=== PATIENT | female | born 1945 | race Caucasian/White ===

== ENCOUNTER 2021-10-26 10:18 | Emergency (ER) | payer MEDICARE, MEDICAID ==
[~2021-10-26] VITALS: Ht 154.9 cm; Wt 77.0 kg
[~2021-10-26 10:18] MED LIST: CLON0.5T4 PO; LOSA50TA41 PO
[2021-10-26] MEDS ORDERED: ACETAMINOPHEN WITH CODEINE 300/30MG TABLET PO ONE (10:45)
[2021-10-26 12:48] VITALS: BP 143/89
== END 2021-10-26 12:51 | disposition home or self-care (01) ==
LOC: ER 10:18
DX: S06.890A Other specified intracranial injury without loss of consciousness, initial encounter (principal); M54.2 Cervicalgia; M79.18 Myalgia, other site; R40.2410 Glasgow coma scale score 13-15, unspecified time; F41.9 Anxiety disorder, unspecified; E78.00 Pure hypercholesterolemia, unspecified; I10 Essential (primary) hypertension; F32.9 Major depressive disorder, single episode, unspecified; W01.198A Fall on same level from slipping, tripping and stumbling with subsequent striking against other object, initial encounter; Y93.89 Activity, other specified; Y92.9 Unspecified place or not applicable; Z88.0 Allergy status to penicillin
CPT/HCPCS: 72170; 73552; 99284